=== PATIENT | female | born 1960 | race Caucasian/White ===

== ENCOUNTER 2019-09-14 16:02 | Inpatient (IN) | payer BC ==
[~2019-09-14] VITALS: Ht 160 cm; Wt 56.8 kg
[~2019-09-14 16:02] MED LIST: AMITRIPTYLINE H10 M1 PO; CIPRO 500MG TA500 MG PO; [UNRECOGNIZED DRUG - REMARK]
[2019-09-14 17:11] LABS: ARTERIAL BLD GAS O2 SATURATION 86.8 % (92-100); ARTERIAL BLD GAS TCO2 CT 23.9; ARTERIAL BLOOD GAS BASE EXCESS -0.7 (-2-2); ARTERIAL BLOOD GAS HCO3 22.9 meq/L (22-26); ARTERIAL BLOOD GAS PCO2 34.9 mmHg (35-45); ARTERIAL BLOOD GAS pH 7.43 (7.35-7.45)
[2019-09-14 17:18] LABS: BASO # 0.2 (0.0-0.2); EOS # 5.3 (0.0-0.7); EOS % 30.5 % (0-4.0); GRAN # 9.3 (1.4-6.5); GRAN % 53.8 % (42.2-75.2); HEMATOCRIT 42.4 % (37.0-47.0); HEMOGLOBIN 14.9 g/dl (12.5-16.0); LYMPH # 1.7 (1.2-3.4); LYMPH % 9.6 % (20.0-51.0); MEAN CELL VOLUME 89 fl (80.0-100.0); MEAN CORPUSCULAR HEMOGLOBIN 31 pg (27.0-31.0); MEAN CORPUSCULAR HGB CONC 35 g/dl (33.0-37.0); MEAN PLATELET VOLUME 8.5 fl (7.4-10.4); MONO # 0.8 (0.1-0.6); MONO % 4.6 % (1.7-9.3); PLATELET COUNT 205 K/mm3 (130-400); RED BLOOD COUNT 4.75 M/mm3 (4.10-5.30); REDCELL DISTRIBUTION WIDTH-CV 12.3 % (11.5-14.5)
[2019-09-14 17:29] LABS: ALANINE AMINOTRANSFERASE 13 U/L (4-34); ALBUMIN 4.1 gm/dL (3.5-5.0); ALKALINE PHOSPHATASE 165 U/L (50-136); ANION GAP 7 mmol/L (7-16); AST,SGOT 22 U/L (15-37); BLOOD UREA NITROGEN 7 mg/dL (7-17); CALCIUM 9.9 mg/dL (8.4-10.2); CARBON DIOXIDE 26 mmol/L (22-30); CHLORIDE 107 mmol/L (98-107); CREATININE, serum 0.71 (0.52-1.25); GLUCOSE 103 mg/dL (74-106); POTASSIUM 3.9 mmol/L (3.4-5.0); SODIUM 139 mmol/L (137-145)
[2019-09-14 17:44] LABS: TROPONIN-I < 0.012 ng/mL (0.000-0.035)
[2019-09-14 20:01] VITALS: BP 148/79; PULSE 89; TEMP 97.8
--- NOTE | 2019-09-14 20:30 | NUR ---
Received patient via wheelchair from ER. Patient is alert and oriented. She has O2 at 2lpm via NC. With INT on left hand. Assesment done. No shortness of breath noted. She just complains of headache, 4/10. She is independent. Call light within reach.
[2019-09-14 22:21] LABS: PH 6 (5-8); SQUAMOUS EPITHELIAL 0-2 /hpf; URINE APPEARANCE Clear; URINE BACTERIA Rare /hpf; URINE BILIRUBIN Negative (NEGATIVE); URINE BLOOD Negative (NEGATIVE); URINE COLOR Straw; URINE GLUCOSE 1+ (NEGATIVE); URINE KETONE Negative (NEGATIVE); URINE LEUKOCYTE ESTERASE Negative (NEGATIVE); URINE NITRATE Negative (NEGATIVE); URINE PROTEIN(semi-quant) Negative (NEGATIVE); URINE RBC 0-2 /hpf; URINE UROBILINOGEN Negative (NEGATIVE)
[2019-09-14 22:26] LABS: COLLECTION METHOD CLEAN CATCH
[2019-09-14 23:17] VITALS: BP 155/76; PULSE 71; TEMP 97.7
[2019-09-15 04:33] VITALS: BP 148/65; PULSE 73; TEMP 97.6
--- NOTE | 2019-09-15 06:41 | NUR ---
Patient had an uneventful night. States her shortness of breath is much better already. She has been walking to the bathroom to urinate with one assist. Denies any pain. Will endorse to day shift nurse.
[2019-09-15 07:11] LABS: HEMATOCRIT 37.3 % (37.0-47.0); MEAN CELL VOLUME 90 fl (80.0-100.0); MEAN CORPUSCULAR HEMOGLOBIN 32 pg (27.0-31.0); MEAN CORPUSCULAR HGB CONC 35 g/dl (33.0-37.0); MEAN PLATELET VOLUME 8.8 fl (7.4-10.4); PLATELET COUNT 193 K/mm3 (130-400); RED BLOOD COUNT 4.13 M/mm3 (4.10-5.30); REDCELL DISTRIBUTION WIDTH-CV 12.4 % (11.5-14.5)
[2019-09-15 07:14] LABS: CALCIUM 9.5 mg/dL (8.4-10.2); CREATININE, serum 0.55 (0.52-1.25); POTASSIUM 3.7 mmol/L (3.4-5.0)
[2019-09-15 07:39] VITALS: BP 154/66; PULSE 74; TEMP 97.8
[2019-09-15 08:13] LABS: BAND 13 % (0-10); LYMPHOCYTE 12 % (20.0-51.0); NEUTROPHILS 72 % (42.0-75.2); PLATELET ESTIMATE NORMAL (NORMAL)
--- NOTE | 2019-09-15 08:51 | NUR ---
Pt assessment complete. Pt sitting up in bed upon entry, she is A/O. Pt recieving a breathing treatment at this time. She reports a HUFF this AM, PRN medication administered. Pt denies any N/V. SOB still on exertion but believes it has improved. Currently on 2L O2 via NC. No needs at this time. Call light within reach.
--- NOTE | 2019-09-15 11:31 | NUR ---
First visit from the senior analyst programmer. No needs right now.
--- NOTE | 2019-09-15 11:32 | NUR ---
DENI met with the patient to complete initial intake. The patient lives alone in [place]. The patient denies DME use, does not use oxygen at home and is independent with ADLs. The patient is on oxygen this day. The patient's PCP is Dr. Potts and patient receives medication from [facility]. The patient does not have advanced directives in the EMR but was interested in DPOA-HC form. Form provided. The patient plans to return home at discharge with her daughter Anna Marie providing transportation. DENI will follow along to ensure the patient will not need oxygen at discharge.
[2019-09-15 12:24] VITALS: BP 172/67; PULSE 88; TEMP 97.7
[2019-09-15 16:54] VITALS: BP 152/68; PULSE 102; TEMP 97.9
--- NOTE | 2019-09-15 20:30 | NUR ---
Initial shift assessment done- states has just a slight headache but is better, VSS, o2 at 1.5L/nc 96% denies .SOB at this time. Tele on, No requests.
[2019-09-15 20:49] VITALS: BP 156/57; PULSE 101; TEMP 98.1
[2019-09-15 23:21] VITALS: BP 135/61; PULSE 97; TEMP 98
--- NOTE | 2019-09-15 23:30 | NUR ---
Report given to Regla DIXON-
--- NOTE | 2019-09-16 02:48 | NUR ---
TREATMENT NOT GIVEN-PATIENT SLEEPING
--- NOTE | 2019-09-16 03:43 | NUR ---
PT RESTING/SLEEPING IN BED WELL, WITH NO C/O OR S/S OF PAIN OR DISCOMFORT NOTED. CALL LIGHT WITHIN REACH.
[2019-09-16 04:17] VITALS: BP 153/65; PULSE 83; TEMP 97.3
[2019-09-16 07:39] LABS: HEMATOCRIT 40.5 % (37.0-47.0); HEMOGLOBIN 14.2 g/dl (12.5-16.0); MEAN CELL VOLUME 90 fl (80.0-100.0); MEAN CORPUSCULAR HEMOGLOBIN 32 pg (27.0-31.0); MEAN CORPUSCULAR HGB CONC 35 g/dl (33.0-37.0); MEAN PLATELET VOLUME 8.7 fl (7.4-10.4); PLATELET COUNT 240 K/mm3 (130-400); RED BLOOD COUNT 4.49 M/mm3 (4.10-5.30); REDCELL DISTRIBUTION WIDTH-CV 12.8 % (11.5-14.5)
[2019-09-16 07:44] LABS: CALCIUM 10.6 mg/dL (8.4-10.2); CREATININE, serum 0.62 (0.52-1.25)
[2019-09-16 07:52] VITALS: BP 150/78; PULSE 82; TEMP 97.6
--- NOTE | 2019-09-16 08:23 | NUR ---
PAIENT DOES NOT REQUIRE OXYGEN DURING AMBULATION OR AT REST.
[2019-09-16 08:34] LABS: BAND 3 % (0-10); EOSINOPHIL 1 % (0-4); LYMPHOCYTE 10 % (20.0-51.0); METAMYELOCYTE 1 % (0-0); NEUTROPHILS 81 % (42.0-75.2); PLATELET ESTIMATE NORMAL (NORMAL)
[2019-09-16] MEDS ORDERED: PROAIR HFA0.09 MG/AC IH (11:09)
[2019-09-16] MEDS ORDERED: MONODOX100 PO (11:09)
[2019-09-16] MEDS ORDERED: PREDNISONE20 MG PO (11:18)
[2019-09-16] MEDS ORDERED: NICODERM C21 MG/PATC TD (11:18)
--- NOTE | 2019-09-16 11:34 | NUR ---
Pt assessment completed and charted. Medications administered per JUN. Pt finished up exercise ox with RT. Pt on room air, satting well. Pt denies any SOB or dizziness at this time. Pt states she "feels better than yesterday". Pt has LH INT IV that flushes w/o complications. Pt denies any pain, chest pain, N/V/D, abdominal pain. No other concerns expressed at this time. Call light within reach.
--- NOTE | 2019-09-16 11:41 | NUR ---
The patient's PA notified DENI that the patient is wanting to see Dr. Diaz for primary care and that she is unsure if she is still established there or not. DENI contacted [employer] at the [facility]. [employer] reports that the patient had switched to Dr. Davis in the past, but then comes back to Dr. Diaz. [employer] states that they would still see the patient. [employer] requested the patient's records from her hospital stay. DENI faxed the records to [employer]. [employer] reports that they will contact the patient to set up a follow up appointment. DENI notified the patient, her PA, and the doc of this. Th patient verbalized understanding. The patient is to discharge back home today, 09/15. No additional needs at this time.
[2019-09-16 11:42] VITALS: BP 158/66; PULSE 91; TEMP 97.5
--- NOTE | 2019-09-16 14:24 | NUR ---
Pt discharge instructions discussed and reviewed with patient who verbalized understanding. LH INT IV dc'd w/ catheter tip intact and no complications. All questions answered. Pt escorted out via WC by SANJUANA Burch. No further needs.
== END 2019-09-16 14:00 | disposition home or self-care (01) | DRG 189 ==
LOC: COL.ER 16:02 → MEDICAL 17:56
PROVIDERS: Emergency Medicine; Physician Assistant
DX: J96.01 Acute respiratory failure with hypoxia (principal); G43.909 Migraine, unspecified, not intractable, without status migrainosus; F17.210 Nicotine dependence, cigarettes, uncomplicated; I10 Essential (primary) hypertension; J44.9 Chronic obstructive pulmonary disease, unspecified; Z90.49 Acquired absence of other specified parts of digestive tract; Z98.51 Tubal ligation status
CPT/HCPCS: 99223-AI; 99232-AI; 99239; J0696; J1644; J2920; J2930; J7030; J7512

== ENCOUNTER 2019-09-22 15:16 | Emergency (ER) | payer BC ==
[~2019-09-22] VITALS: Ht 160 cm; Wt 54.5 kg
[~2019-09-22 15:16] MED LIST changes: +MONODOX100 PO; +NICODERM C21 MG/PATC TD; +PREDNISONE20 MG PO; +PROAIR HFA0.09 MG/AC IH
[2019-09-22 15:26] VITALS: TEMP 97.8
[2019-09-22] MEDS ORDERED: PRIL40 PO (15:57)
[2019-09-22 16:13] LABS: BASO % 0.3 % (0.0-2.0); EOS # 2.9 (0.0-0.7); EOS % 19.3 % (0-4.0); GRAN # 6.9 (1.4-6.5); GRAN % 46.5 % (42.2-75.2); HEMATOCRIT 37.8 % (37.0-47.0); HEMOGLOBIN 13.3 g/dl (12.5-16.0); LYMPH # 3.6 (1.2-3.4); LYMPH % 24.4 % (20.0-51.0); MEAN CELL VOLUME 89 fl (80.0-100.0); MEAN CORPUSCULAR HEMOGLOBIN 31 pg (27.0-31.0); MEAN CORPUSCULAR HGB CONC 35 g/dl (33.0-37.0); MEAN PLATELET VOLUME 8.8 fl (7.4-10.4); MONO # 1.3 (0.1-0.6); MONO % 8.6 % (1.7-9.3); PLATELET COUNT 254 K/mm3 (130-400); RED BLOOD COUNT 4.24 M/mm3 (4.10-5.30); REDCELL DISTRIBUTION WIDTH-CV 12.4 % (11.5-14.5)
[2019-09-22 16:22] LABS: ALANINE AMINOTRANSFERASE 23 U/L (4-34); ALBUMIN 3.6 gm/dL (3.5-5.0); ALKALINE PHOSPHATASE 105 U/L (50-136); ANION GAP 8 mmol/L (7-16); AST,SGOT 46 U/L (15-37); BILIRUBIN,TOTAL 0.7 mg/dL (0.0-1.0); BLOOD UREA NITROGEN 17 mg/dL (7-17); CALCIUM 10.7 mg/dL (8.4-10.2); CARBON DIOXIDE 28 mmol/L (22-30); CHLORIDE 99 mmol/L (98-107); CREATININE, serum 0.82 (0.52-1.25); GLUCOSE 90 mg/dL (74-106); LIPASE 184 U/L (23-300); POTASSIUM 3.4 mmol/L (3.4-5.0); SODIUM 134 mmol/L (137-145); TOTAL PROTEIN 6.8 gm/dL (6.4-8.2)
[2019-09-22 16:27] LABS: C-REACTIVE PROTEIN < 0.5 mg/dL (0.0-0.9)
[2019-09-22 16:36] LABS: TROPONIN-I < 0.012 ng/mL (0.000-0.035)
[2019-09-22 16:55] LABS: COLLECTION METHOD CLEAN CATCH
[2019-09-22 17:05] LABS: MUCOUS Present /lpf; PH 5 (5-8); URINE APPEARANCE Hazy; URINE BACTERIA Rare /hpf; URINE BILIRUBIN Negative (NEGATIVE); URINE BLOOD 1+ (NEGATIVE); URINE COLOR Yellow; URINE GLUCOSE Negative (NEGATIVE); URINE KETONE Negative (NEGATIVE); URINE LEUKOCYTE ESTERASE Negative (NEGATIVE); URINE NITRATE Negative (NEGATIVE); URINE PROTEIN(semi-quant) Negative (NEGATIVE); URINE RBC 0-2 /hpf; URINE UROBILINOGEN Negative (NEGATIVE)
[2019-09-22 18:30] VITALS: BP 138/62; PULSE 89
== END 2019-09-22 18:45 | disposition home or self-care (01) ==
LOC: COL.ER 15:16
PROVIDERS: Emergency Medicine
DX: R07.89 Other chest pain (principal); J44.9 Chronic obstructive pulmonary disease, unspecified; F17.210 Nicotine dependence, cigarettes, uncomplicated; Z87.01 Personal history of pneumonia (recurrent)

== ENCOUNTER 2019-12-29 15:00 | Emergency (ER) | payer BC ==
[~2019-12-29] VITALS: Ht 160 cm; Wt 60.5 kg
[~2019-12-29 15:00] MED LIST changes: +PRIL40 PO
[2019-12-29 15:09] VITALS: BP 146/83; TEMP 97.4
[2019-12-29] MEDS ORDERED: PREDNISONE20 MG PO (15:58)
[2019-12-29 16:02] LABS: STREP SCREEN NEGATIVE
[2019-12-29 16:45] VITALS: PULSE 94
== END 2019-12-29 16:42 | disposition home or self-care (01) ==
LOC: COL.ER 15:00
PROVIDERS: Emergency Medicine
DX: J20.9 Acute bronchitis, unspecified (principal); J44.9 Chronic obstructive pulmonary disease, unspecified; Z20.828 Contact with and (suspected) exposure to other viral communicable diseases
CPT/HCPCS: J7512

== ENCOUNTER 2020-06-30 15:53 | Inpatient (IN) | payer BC ==
[~2020-06-30] VITALS: Ht 160 cm; Wt 63.2 kg
[2020-06-30 17:18] LABS: COLLECTION METHOD CLEAN CATCH
[2020-06-30 17:24] LABS: BASO # 0.1 (0.0-0.2); BASO % 0.2 % (0.0-2.0); EOS % 0.2 % (0-4.0); GRAN # 18.3 (1.4-6.5); GRAN % 84.9 % (42.2-75.2); HEMOGLOBIN 11.9 g/dl (12.5-16.0); LYMPH % 9.2 % (20.0-51.0); MEAN CELL VOLUME 91 fl (80.0-100.0); MEAN CORPUSCULAR HEMOGLOBIN 32 pg (27.0-31.0); MEAN CORPUSCULAR HGB CONC 35 g/dl (33.0-37.0); MEAN PLATELET VOLUME 8.5 fl (7.4-10.4); MONO % 4.8 % (1.7-9.3); PLATELET COUNT 279 K/mm3 (130-400); RED BLOOD COUNT 3.72 M/mm3 (4.10-5.30); REDCELL DISTRIBUTION WIDTH-CV 12.6 % (11.5-14.5)
[2020-06-30 17:25] LABS: PH 6 (5-8); SQUAMOUS EPITHELIAL None Seen /hpf; URINE APPEARANCE Clear; URINE BACTERIA None Seen /hpf; URINE BILIRUBIN Negative (NEGATIVE); URINE BLOOD 1+ (NEGATIVE); URINE COLOR Colorless; URINE GLUCOSE Negative (NEGATIVE); URINE KETONE Negative (NEGATIVE); URINE LEUKOCYTE ESTERASE Negative (NEGATIVE); URINE NITRATE Negative (NEGATIVE); URINE PROTEIN(semi-quant) Negative (NEGATIVE); URINE RBC None Seen /hpf; URINE UROBILINOGEN Negative (NEGATIVE)
[2020-06-30 17:35] LABS: ALANINE AMINOTRANSFERASE 31 U/L (4-34); ALBUMIN 4.3 gm/dL (3.5-5.0); ALKALINE PHOSPHATASE 93 U/L (50-136); ANION GAP 13 mmol/L (7-16); AST,SGOT 35 U/L (15-37); BILIRUBIN,TOTAL 0.9 mg/dL (0.0-1.0); BLOOD UREA NITROGEN 7 mg/dL (7-17); C-REACTIVE PROTEIN 5.4 mg/dL (0.0-0.9); CALCIUM 9.9 mg/dL (8.4-10.2); CARBON DIOXIDE 24 mmol/L (22-30); CHLORIDE 100 mmol/L (98-107); CREATININE, serum 0.73 (0.52-1.25); GLUCOSE 100 mg/dL (74-106); SODIUM 136 mmol/L (137-145); TOTAL PROTEIN 7.1 gm/dL (6.4-8.2)
[2020-06-30 17:58] LABS: TROPONIN-I < 0.012 ng/mL (0.000-0.035)
[2020-06-30] MEDS ORDERED: ELAVIL100 MG PO (18:55)
[2020-06-30] MEDS ORDERED: TRELEGY ELLIPT1 EACH IH (19:20)
[2020-06-30] MEDS ORDERED: B-121000 MCG PO (19:22)
[2020-06-30] MEDS ORDERED: TYLENOL 8 HR PO (19:22)
[2020-06-30 21:17] LABS: ARTERIAL BLD GAS O2 SATURATION 93.5 % (92-100); ARTERIAL BLD GAS TCO2 CT 21.7; ARTERIAL BLOOD GAS BASE EXCESS -3.3 (-2-2); ARTERIAL BLOOD GAS HCO3 20.7 meq/L (22-26); ARTERIAL BLOOD GAS PCO2 33.8 mmHg (35-45); ARTERIAL BLOOD GAS PO2 65.5 mmHg (80-100)
--- NOTE | 2020-06-30 21:46 | NUR ---
Vancomycin Initial Dosing Pharmacy Note Ordering provider: Jake Hernandez MD 59 yo F Indication: PNA Goal: 15-20 Hx: None identified BMI: 23.1 Wt: 59.1 kg SCR: 0.73 estCrCl ~ 75 ml/min t 1/2 ~ 10h Tmax: 100.1 WBC: 21.5 LA: 3.8 CRP: 5.4 Micro ordered (No MRSA nasal swab ordered) Chest CT reporting multifocal PNA Pt loaded with 1250mg x1 (~21 mg/kg). Will start a maintenance regimen of 1gm q12h. Would recommend obtaining a MRSA nasal screen to determine ability to de-escalate therapy. Will follow renal function, micro, and plan for need to adjust therapy. Thank you for this dosing consult!
[2020-06-30 23:19] VITALS: BP 159/62; PULSE 103; TEMP 97.8
--- NOTE | 2020-06-30 23:30 | NUR ---
Patient arrived to medical floor from ER at approximately 2230. Alert and oriented x 4, and able to make needs known. Denies having pain and discomfort at this time. Peripheral IV to left forearm, with NS running per orders. Given IV ABXs per orders. Site without redness, warmth, swelling, and pain. Denies having SOB and dyspnea. LS diminished. On oxygen at 2 L/min via NC. Reports occasional cough with some sputum production. Educated that sputum sample was needed, and voiced understanding. HRR. Telemetry in place. Capillary refill less than 3 seconds. Non-tenting skin turgor. BSAx4. Abdomen soft and non-tender. No edema. Voices no questions, needs, or concerns at this time. Resting in bed with call light within reach.
[2020-06-30 23:51] VITALS: BP 159/62; PULSE 103; TEMP 97.8
[2020-07-01 02:01] LABS: INR 1.3 (0.8-3.0); PROTHROMBIN TIME 14.2 SECONDS (9.7-12.8)
[2020-07-01 02:45] LABS: ACETAMINOPHEN < 10 ug/mL (10-30); ALCOHOL(ethanol),MEDICAL < 10 mg/dL; SALICYLATE < 1.0 mg/dL
[2020-07-01 03:45] VITALS: BP 116/49; PULSE 101; TEMP 98.7
--- NOTE | 2020-07-01 05:47 | NUR ---
Patient has been resting in bed with call light within reach. Has denied having pain and discomfort this shift. Continues on oxygen at 2 L/min via NC. Denies having SOB and dsypnea. IV fluids continue per orders. MD aware of Lactic elevating. Voices no questions, needs, or concerns at this time.
--- NOTE | 2020-07-01 06:04 | NUR ---
Most recenet Lactic 4.3, which is down from 6.5. Called and updated DREW Maloney that it started to trend down.
[2020-07-01 07:09] LABS: HEMOGLOBIN 11.5 g/dl (12.5-16.0); MEAN CELL VOLUME 94 fl (80.0-100.0); MEAN CORPUSCULAR HEMOGLOBIN 32 pg (27.0-31.0); MEAN CORPUSCULAR HGB CONC 34 g/dl (33.0-37.0); MEAN PLATELET VOLUME 8.6 fl (7.4-10.4); PLATELET COUNT 270 K/mm3 (130-400); RED BLOOD COUNT 3.61 M/mm3 (4.10-5.30)
[2020-07-01 07:18] LABS: HEMATOCRIT 33.8 % (37.0-47.0)
[2020-07-01 07:24] LABS: CALCIUM 8.5 mg/dL (8.4-10.2); CREATININE, serum 0.66 (0.52-1.25); POTASSIUM 3.2 mmol/L (3.4-5.0)
[2020-07-01 07:45] LABS: BAND 7 % (0-10); NEUTROPHILS 92 % (42.0-75.2); PLATELET ESTIMATE NORMAL (NORMAL)
[2020-07-01 08:29] VITALS: BP 158/73; PULSE 104; TEMP 97.9
--- NOTE | 2020-07-01 11:31 | NUR ---
DENI met with the patient to discuss discharge plan. The patient lives alone in [place]. She states that her son, Rock, sometimes stays with her. 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 She reports independence with ADLs and does not have any DME. The patient's PCP is Dr. Cisco Diaz and [facility] She reports no difficulties obtaining his meds. The patient does not have a DPOA-HC and she was not interested in completing one at this time. The patient is not and she has three children: Rock, Molina, and Anna Marie (ph#[phone]). Anna Marie lives in [place]. The patient plans to return home upon discharge. The patient was interested in a financial assistance application through the hospital for herself and her son. DENI provided the forms. The patient is currently on 2 liters of oxygen. SW to continue to follow.
[2020-07-01 12:55] VITALS: BP 133/49; PULSE 99; TEMP 98.1
--- NOTE | 2020-07-01 13:45 | NUR ---
Primary nurse was assisted with [id number] patient care by [employer] [employer] [facility] Rika Bowen and [employer] instructor Marie Mclaughlin MSN, RN.
[2020-07-01 15:56] VITALS: BP 132/58; PULSE 120; TEMP 98
--- NOTE | 2020-07-01 19:30 | NUR ---
Patient alert and oriented x 4, and able to make needs known. Denies having pain and discomfort at this time. Peripheral IVs to left forearm x 2. Both sites are without redness, warmth, swelling, and pain. Denies having SOB and dyspnea. On room air. LS diminished throughout. Denies cough at this time. Respirations even and unlabored. HRR. Telemetry in place. Capillary refill less than 3 seconds. Non-tenting skin turgor. BSAx4. Abdomen soft and non-tender. No edema. Voices no questions, needs, or concerns at this time. Resting in bed with call light within reach.
[2020-07-01 22:02] VITALS: BP 129/60; PULSE 114; TEMP 98.2
[2020-07-02] VITALS (7 sets, daily range): BP systolic 126–182; BP diastolic 55–76; PULSE 98–116; TEMP 97.4–97.9
--- NOTE | 2020-07-02 05:49 | NUR ---
Patient has been resting in bed with call light within reach. Has denied having pain and discomfort this shift. Continues on IV antibiotics per orders. Voices no questions, needs, or concerns at this time.
--- NOTE | 2020-07-02 07:05 | NUR ---
Report with ZACK Corrales. Pt receiving breathing treatment at this time. Call light in reach.
[2020-07-02 07:36] LABS: BASO % 0.2 % (0.0-2.0); EOS % 0.1 % (0-4.0); GRAN # 16.7 (1.4-6.5); GRAN % 87.4 % (42.2-75.2); HEMOGLOBIN 10.5 g/dl (12.5-16.0); LYMPH # 1.5 (1.2-3.4); LYMPH % 7.9 % (20.0-51.0); MEAN CELL VOLUME 95 fl (80.0-100.0); MEAN CORPUSCULAR HEMOGLOBIN 32 pg (27.0-31.0); MEAN CORPUSCULAR HGB CONC 33 g/dl (33.0-37.0); MEAN PLATELET VOLUME 8.7 fl (7.4-10.4); MONO # 0.7 (0.1-0.6); MONO % 3.7 % (1.7-9.3); PLATELET COUNT 286 K/mm3 (130-400); RED BLOOD COUNT 3.29 M/mm3 (4.10-5.30); REDCELL DISTRIBUTION WIDTH-CV 13.6 % (11.5-14.5)
[2020-07-02 07:38] LABS: HEMATOCRIT 31.4 % (37.0-47.0)
--- NOTE | 2020-07-02 07:50 | NUR ---
Assessment complete. Pt sitting up by window, reports feeling slightly short of breath d/t sore throat and ache in her lower chest from coughing, requesting increased air in room. Thermostat turned down for lower temp and PA notified of high BP, request for lozenges. O2 sats 94% on room air. IVF's infusing per orders through left forearm site without s/s of complications. Second IV to left forearm with abx infusing, no s/s of infiltration or phlebitis. No further needs reported. Call light in reach.
[2020-07-02 07:56] LABS: CALCIUM 8.3 mg/dL (8.4-10.2); CREATININE, serum 0.67 (0.52-1.25); MAGNESIUM 1.7 mg/dL (1.6-2.3)
[2020-07-02 07:57] LABS: POTASSIUM 3.3 mmol/L (3.4-5.0)
--- NOTE | 2020-07-02 10:51 | NUR ---
First visit from the bark spudder. No needs right now.
--- NOTE | 2020-07-02 17:00 | NUR ---
Abx infusion complete and IV flushed. IVF's continue. Pt reports just being up to bathroom and back to bed, feeling a little winded, requests to wait until bedtime for shower. No further needs reported. Call light in reach.
--- NOTE | 2020-07-02 18:45 | NUR ---
Report with ZACK Corrales.
--- NOTE | 2020-07-02 19:15 | NUR ---
Patient assessed at this time. Alert and oriented x 4, and able to make needs known. Denies having pain and discomfort at this time. Peripheral INT to left forearm x 2. Reports SOB with exertion. Respirations even and unlabored at rest. LS CTA in upper lobes, diminished in lower. Respirations even and unlabored. HRR. Capillary refill less than 3 seconds. Non-tenting skin turgor. BSAx4. Abdomen soft and non-tender. No edema. Voices no questions, needs, or concerns at this time. Resting in bed with call light within reach.
[2020-07-03 04:39] VITALS: BP 159/82; PULSE 95; TEMP 97.8
--- NOTE | 2020-07-03 05:56 | NUR ---
Patient has denied having pain and discomfort this shift. Voices no questions, needs, or concerns at this time. Continues on IV antibiotics per orders. Resting in bed with call light within reach.
[2020-07-03 06:37] LABS: BASO % 0.2 % (0.0-2.0); EOS % 0.3 % (0-4.0); GRAN # 10.8 (1.4-6.5); GRAN % 78.2 % (42.2-75.2); LYMPH # 2.2 (1.2-3.4); LYMPH % 15.7 % (20.0-51.0); MEAN CELL VOLUME 96 fl (80.0-100.0); MEAN CORPUSCULAR HEMOGLOBIN 32 pg (27.0-31.0); MEAN CORPUSCULAR HGB CONC 33 g/dl (33.0-37.0); MEAN PLATELET VOLUME 8.1 fl (7.4-10.4); MONO # 0.7 (0.1-0.6); MONO % 4.9 % (1.7-9.3); PLATELET COUNT 294 K/mm3 (130-400); RED BLOOD COUNT 3.45 M/mm3 (4.10-5.30); REDCELL DISTRIBUTION WIDTH-CV 13.6 % (11.5-14.5)
[2020-07-03 06:46] LABS: HEMATOCRIT 33.1 % (37.0-47.0)
[2020-07-03 06:48] LABS: CALCIUM 8.5 mg/dL (8.4-10.2); CREATININE, serum 0.66 (0.52-1.25); MAGNESIUM 2.5 mg/dL (1.6-2.3); POTASSIUM 3.5 mmol/L (3.4-5.0)
--- NOTE | 2020-07-03 07:00 | NUR ---
Report with ZACK Corrales. Pt resting in bed, waking as we enter the room. RT at bedside for treatment as well. Pt denies needs. Call light in reach.
[2020-07-03 08:27] VITALS: BP 153/71; PULSE 98; TEMP 97.6
--- NOTE | 2020-07-03 08:30 | NUR ---
Assessment complete. Pt resting in bed, A&O x 4, denies pain or needs at this time. Pt reports feeling better today. IVF's infusing per orders through left forearm site without s/s of complications. Second IV discontinued from left forearm d/t not needed and slight redness in area. POC reviewed with pt. Call light in reach.
[2020-07-03] MEDS ORDERED: COZAAR 25MG25 MG/TAB PO (09:16)
[2020-07-03] MEDS ORDERED: OMNICEF 300MG300 MG PO (09:18)
[2020-07-03] MEDS ORDERED: MEDROL 4MG DOSPA4 MG PO (09:18)
[2020-07-03] MEDS ORDERED: PROAIR HFA0.09 MG/AC IH (09:19)
[2020-07-03] MEDS ORDERED: TRELEGY ELLIPT1 EACH IH (09:19)
--- NOTE | 2020-07-03 12:50 | NUR ---
Discharge instructions reviewed with pt regarding new medications and follow-up appointment. Pt verbalizes understanding, discharged home, escorted out of facility via WC accompanied by this nurse.
[2021-01-28] MEDS ORDERED: FLEXERIL5 MG PO (18:33)
[2021-01-28] MEDS ORDERED: PREDNISONE20 MG PO (18:33)
[2021-01-28] MEDS ORDERED: MOBIC 7.5MG7.5 MG PO (18:34)
[2021-01-28] MEDS ORDERED: OMNICEF 300MG300 MG PO (18:34)
[2021-01-28] MEDS ORDERED: REGLAN 5MG T5 MG/TAB PO (18:35)
[2021-01-28] MEDS ORDERED: COZAAR 50MG50 MG/TAB PO (20:21)
[2021-01-28] MEDS ORDERED: ELAVIL100 MG PO (20:23)
[2021-01-28] MEDS ORDERED: PRIL40 PO (20:24)
== END 2020-07-03 13:03 | disposition home or self-care (01) | DRG 871 ==
LOC: COL.ER 15:53 → MEDICAL 20:10
PROVIDERS: Family Medicine; Nurse Practitioner Family; Physician Assistant; ADMIT Internal Medicine
DX: A41.9 Sepsis, unspecified organism (principal); J18.9 Pneumonia, unspecified organism; J44.0 Chronic obstructive pulmonary disease with (acute) lower respiratory infection; R65.20 Severe sepsis without septic shock; Z20.822 Contact with and (suspected) exposure to COVID-19; D64.9 Anemia, unspecified; G43.909 Migraine, unspecified, not intractable, without status migrainosus; I10 Essential (primary) hypertension; E87.6 Hypokalemia; G40.909 Epilepsy, unspecified, not intractable, without status epilepticus; Z90.49 Acquired absence of other specified parts of digestive tract; Z98.51 Tubal ligation status; Z87.891 Personal history of nicotine dependence
CPT/HCPCS: 99223-AI; 99232-AI; 99233-AI; 99239; J0360; J0456; J1650; J2543; J2930; J3370; J3475; J7030; J7050; J7512; Q9967

== ENCOUNTER → 2021-01-25 | Outpatient (CLI) | payer OTHER ==
[~2021-01-25] MED LIST changes: +B-121000 MCG PO; +COZAAR 25MG25 MG/TAB PO; +COZAAR 50MG50 MG/TAB PO; +ELAVIL100 MG PO; +FLEXERIL5 MG PO; +MEDROL 4MG DOSPA4 MG PO; +MOBIC 7.5MG7.5 MG PO; +OMNICEF 300MG300 MG PO; +REGLAN 5MG T5 MG/TAB PO; +TRELEGY ELLIPT1 EACH IH; +TYLENOL 8 HR PO
[2021-01-25 15:11] LABS: HEMATOCRIT 37.1 % (37.0-47.0); HEMOGLOBIN 13.1 g/dl (12.5-16.0); MEAN CELL VOLUME 94 fl (80.0-100.0); MEAN CORPUSCULAR HEMOGLOBIN 33 pg (27.0-31.0); MEAN CORPUSCULAR HGB CONC 35 g/dl (33.0-37.0); MEAN PLATELET VOLUME 9.2 fl (7.4-10.4); PLATELET COUNT 213 K/mm3 (130-400); RED BLOOD COUNT 3.96 M/mm3 (4.10-5.30); REDCELL DISTRIBUTION WIDTH-CV 13.7 % (11.5-14.5)
[2021-01-25 15:29] LABS: BAND 2 % (0-10); EOSINOPHIL 41 % (0-4); LYMPHOCYTE 17 % (20.0-51.0); NEUTROPHILS 36 % (42.0-75.2); PLATELET ESTIMATE NORMAL (NORMAL)
[2021-01-25 15:33] LABS: ALBUMIN 4.1 gm/dL (3.4-4.8); BILIRUBIN,TOTAL 0.7 mg/dL (0.2-1.2); CALCIUM 9.8 mg/dL (8.4-10.2); CREATININE, serum 0.8 mg/dL (0.57-1.11); POTASSIUM 3.4 mmol/L (3.5-4.5); TOTAL PROTEIN 7.4 gm/dL (6.2-8.1)
== END ==
LOC: ZCOL.LAB 14:44
PROVIDERS: Nurse Practitioner Family
DX: R10.11 Right upper quadrant pain (principal)

== ENCOUNTER → 2021-05-10 | Outpatient (CLI) | payer OTHER | LOC: ZCOL.LAB 15:42 | DX: S91.201A Unspecified open wound of right great toe with damage to nail, initial encounter (principal) ==

== ENCOUNTER → 2021-05-23 | Outpatient (CLI) | payer OTHER | LOC: COL.RAD 10:02 | DX: J43.9 Emphysema, unspecified (principal); R91.1 Solitary pulmonary nodule | CPT/HCPCS: Q9967 ==

== ENCOUNTER → 2021-07-25 | Outpatient (CLI) | payer OTHER, MEDICAID | LOC: MC.RAD 15:27 | DX: Z12.31 Encounter for screening mammogram for malignant neoplasm of breast (principal) ==

== ENCOUNTER → 2021-11-10 | Outpatient (CLI) | payer MEDICAID ==
[~2021-11-10] MED LIST changes: +ELIQUIS 5MG PO
== END ==
LOC: COL.VAS 14:11
DX: I36.1 Nonrheumatic tricuspid (valve) insufficiency (principal); I31.3 Pericardial effusion (noninflammatory); I46.9 Cardiac arrest, cause unspecified

== ENCOUNTER 2021-11-23 00:37 | Emergency (ER) | payer MEDICAID ==
[~2021-11-23] VITALS: Ht 160 cm; Wt 54.1 kg
[~2021-11-23 00:37] MED LIST changes: -ELIQUIS 5MG PO
[2021-11-23 00:54] VITALS: TEMP 97.9
[2021-11-23] MEDS ORDERED: ELIQUIS 5MG PO (00:55)
[2021-11-23 02:54] VITALS: BP 169/63; PULSE 60
== END 2021-11-23 02:54 | disposition home or self-care (01) ==
LOC: COL.ER 00:37
DX: L76.22 Postprocedural hemorrhage of skin and subcutaneous tissue following other procedure (principal); F17.200 Nicotine dependence, unspecified, uncomplicated; Z86.73 Personal history of transient ischemic attack (TIA), and cerebral infarction without residual deficits; Z79.01 Long term (current) use of anticoagulants

== ENCOUNTER 2022-01-15 10:29 | Emergency (ER) | payer MEDICAID ==
[~2022-01-15] VITALS: Ht 160 cm; Wt 54.5 kg
[~2022-01-15 10:29] MED LIST changes: +ELIQUIS 5MG PO
[2022-01-15 10:39] VITALS: TEMP 97.2
[2022-01-15 12:49] LABS: BASO % 0.5 % (0.0-2.0); EOS # 0.4 K/mm3 (0.0-0.7); EOS % 6.6 % (0.0-4.0); GRAN # 3.4 K/mm3 (1.4-6.5); GRAN % 57.9 % (42.2-75.2); HEMATOCRIT 40.7 % (37.0-47.0); HEMOGLOBIN 13.6 g/dl (12.5-16.0); LYMPH # 1.6 K/mm3 (1.2-3.4); LYMPH % 27.7 % (20.0-51.0); MEAN CELL VOLUME 88 fl (80.0-100.0); MEAN CORPUSCULAR HEMOGLOBIN 29 pg (27-31); MEAN CORPUSCULAR HGB CONC 33 g/dl (33.0-37.0); MEAN PLATELET VOLUME 8.3 fl (7.4-10.4); MONO # 0.4 K/mm3 (0.1-0.6); MONO % 7.1 % (1.7-9.3); PLATELET COUNT 200 K/mm3 (130-400); RED BLOOD COUNT 4.64 M/mm3 (4.10-5.30); REDCELL DISTRIBUTION WIDTH-CV 12.5 % (11.5-14.5)
[2022-01-15 12:54] LABS: INR 2.1 (0.8-3.0)
[2022-01-15 12:56] LABS: PARTIAL THROMBOPLASTIN TIME 40.7 SECONDS (26.0-37.0)
[2022-01-15 13:05] LABS: ALBUMIN 4.4 gm/dL (3.4-4.8); BILIRUBIN,TOTAL 0.9 mg/dL (0.2-1.2); CALCIUM 10.1 mg/dL (8.4-10.2); CREATININE, serum 1.06 mg/dL (0.57-1.11); POTASSIUM 3.7 mmol/L (3.5-4.5); TOTAL PROTEIN 7.8 gm/dL (6.2-8.1)
[2022-01-15 13:11] LABS: TROPONIN-I 0.017 ng/mL (0.00-0.033)
[2022-01-15] MEDS ORDERED: PREDNISONE20 MG PO (13:42)
[2022-01-15] MEDS ORDERED: ZITHROMAX Z PA250 MG PO (13:42)
[2022-01-15 14:27] VITALS: BP 146/80; PULSE 70
== END 2022-01-15 14:27 | disposition home or self-care (01) ==
LOC: COL.ER 10:29
PROVIDERS: Physician Assistant
DX: J43.9 Emphysema, unspecified (principal); Z87.891 Personal history of nicotine dependence; Z20.822 Contact with and (suspected) exposure to COVID-19
CPT/HCPCS: J7512

== ENCOUNTER → 2022-01-16 | Outpatient (CLI) | payer MEDICAID ==
[~2022-01-16] MED LIST changes: +ZITHROMAX Z PA250 MG PO
[2022-01-16 15:41] LABS: BASO % 0.1 % (0.0-2.0); GRAN # 8.4 K/mm3 (1.4-6.5); GRAN % 85.6 % (42.2-75.2); HEMATOCRIT 37.4 % (37.0-47.0); HEMOGLOBIN 12.6 g/dl (12.5-16.0); LYMPH % 10.5 % (20.0-51.0); MEAN CELL VOLUME 88 fl (80.0-100.0); MEAN CORPUSCULAR HEMOGLOBIN 30 pg (27-31); MEAN CORPUSCULAR HGB CONC 34 g/dl (33.0-37.0); MEAN PLATELET VOLUME 8.4 fl (7.4-10.4); MONO # 0.3 K/mm3 (0.1-0.6); MONO % 3.4 % (1.7-9.3); PLATELET COUNT 246 K/mm3 (130-400); RED BLOOD COUNT 4.26 M/mm3 (4.10-5.30); REDCELL DISTRIBUTION WIDTH-CV 12.5 % (11.5-14.5)
[2022-01-16 15:56] LABS: ALBUMIN 4.3 gm/dL (3.4-4.8); BILIRUBIN,TOTAL 0.6 mg/dL (0.2-1.2); C-REACTIVE PROTEIN 0.15 mg/dL (0.00-0.50); CALCIUM 9.8 mg/dL (8.4-10.2); CREATININE, serum 0.94 mg/dL (0.57-1.11); TOTAL PROTEIN 7.6 gm/dL (6.2-8.1)
[2022-01-16 16:08] LABS: ERYTHROCYTE SEDIMENTATION RATE 8 mm/hr (0-30)
== END ==
LOC: COL.LAB 15:07
PROVIDERS: Nurse Practitioner Family
DX: D72.10 Eosinophilia, unspecified (principal)

== ENCOUNTER → 2022-05-31 | Outpatient (CLI) | payer MEDICAID ==
[2022-05-31 14:46] LABS: HEMOGLOBIN 11.3 g/dl (12.5-16.0); MEAN CELL VOLUME 88 fl (80.0-100.0); MEAN CORPUSCULAR HEMOGLOBIN 30 pg (27-31); MEAN CORPUSCULAR HGB CONC 34 g/dl (33.0-37.0); MEAN PLATELET VOLUME 8.2 fl (7.4-10.4); PLATELET COUNT 235 K/mm3 (130-400); RED BLOOD COUNT 3.81 M/mm3 (4.10-5.30); REDCELL DISTRIBUTION WIDTH-CV 13.7 % (11.5-14.5)
[2022-05-31 14:47] LABS: HEMATOCRIT 33.6 % (37.0-47.0)
[2022-05-31 15:05] LABS: C-REACTIVE PROTEIN 0.6 mg/dL (0.00-0.50); CALCIUM 9.6 mg/dL (8.4-10.2); CREATININE, serum 1.13 mg/dL (0.57-1.11); POTASSIUM 4.4 mmol/L (3.5-4.5)
[2022-05-31 15:18] LABS: BAND 6 % (0-10); EOSINOPHIL 22 % (0-4); LYMPHOCYTE 24 % (20.0-51.0); NEUTROPHILS 47 % (42.0-75.2); PLATELET ESTIMATE NORMAL (NORMAL)
[2022-05-31 15:21] LABS: ERYTHROCYTE SEDIMENTATION RATE 26 mm/hr (0-30)
== END ==
LOC: COL.LAB 14:11
PROVIDERS: Nurse Practitioner Family
DX: D72.10 Eosinophilia, unspecified (principal); J44.9 Chronic obstructive pulmonary disease, unspecified

== ENCOUNTER → 2022-06-01 | Outpatient (CLI) | payer MEDICAID | LOC: COL.LAB 13:28 | PROVIDERS: Nurse Practitioner Family | DX: D72.10 Eosinophilia, unspecified (principal) ==

== ENCOUNTER → 2022-06-06 | Outpatient (CLI) | payer MEDICAID ==
[2022-06-06 12:15] LABS: HEMOGLOBIN 11.5 g/dl (12.5-16.0); MEAN CELL VOLUME 91 fl (80.0-100.0); MEAN CORPUSCULAR HEMOGLOBIN 30 pg (27-31); MEAN CORPUSCULAR HGB CONC 33 g/dl (33.0-37.0); MEAN PLATELET VOLUME 7.9 fl (7.4-10.4); PLATELET COUNT 386 K/mm3 (130-400); REDCELL DISTRIBUTION WIDTH-CV 13.8 % (11.5-14.5)
[2022-06-06 12:32] LABS: HEMATOCRIT 34.4 % (37.0-47.0)
[2022-06-06 13:11] LABS: BAND 3 % (0-10); LYMPHOCYTE 3 % (20.0-51.0); MYELOCYTE 2 % (0-0); NEUTROPHILS 86 % (42.0-75.2)
[2022-06-06 13:12] LABS: ERYTHROCYTE SEDIMENTATION RATE 6 mm/hr (0-30); PLATELET ESTIMATE NORMAL (NORMAL)
== END ==
LOC: COL.LAB 11:25
PROVIDERS: Nurse Practitioner Family
DX: D72.10 Eosinophilia, unspecified (principal)

== ENCOUNTER 2022-07-22 00:58 | Emergency (ER) | payer MEDICAID ==
[~2022-07-22] VITALS: Ht 160 cm; Wt 54.5 kg
[2022-07-22 01:01] VITALS: TEMP 97.6
[2022-07-22 01:18] LABS: HEMATOCRIT 37.7 % (37.0-47.0); HEMOGLOBIN 12.9 g/dl (12.5-16.0); MEAN CELL VOLUME 92 fl (80.0-100.0); MEAN CORPUSCULAR HEMOGLOBIN 31 pg (27-31); MEAN CORPUSCULAR HGB CONC 34 g/dl (33.0-37.0); MEAN PLATELET VOLUME 8.2 fl (7.4-10.4); PLATELET COUNT 191 K/mm3 (130-400); RED BLOOD COUNT 4.11 M/mm3 (4.10-5.30); REDCELL DISTRIBUTION WIDTH-CV 13.3 % (11.5-14.5)
[2022-07-22 01:36] LABS: ALANINE AMINOTRANSFERASE 19 U/L (0-55); ALKALINE PHOSPHATASE 127 U/L (40-150); ANION GAP 12 mmol/L (7-16); AST,SGOT 18 U/L (5-34); BILIRUBIN,TOTAL 0.6 mg/dL (0.2-1.2); BLOOD UREA NITROGEN 10 mg/dL (10-20); CALCIUM 9.5 mg/dL (8.4-10.2); CARBON DIOXIDE 21 mmol/L (23-31); CHLORIDE 107 mmol/L (98-107); CREATININE, serum 1.17 mg/dL (0.57-1.11); GLUCOSE 107 mg/dL (70-99); POTASSIUM 4.1 mmol/L (3.5-4.5); SODIUM 140 mmol/L (136-145)
[2022-07-22 01:44] LABS: TROPONIN-I < 0.010 ng/mL (0.00-0.033)
[2022-07-22 01:45] LABS: BAND 1 % (0-10); EOSINOPHIL 37 % (0-4); LYMPHOCYTE 15 % (20.0-51.0); NEUTROPHILS 43 % (42.0-75.2); PLATELET ESTIMATE NORMAL (NORMAL)
[2022-07-22] MEDS ORDERED: AMOXICILLIN 8751 TAB PO (01:58)
[2022-07-22] MEDS ORDERED: PREDNISONE20 MG PO (01:58)
[2022-07-22] MEDS ORDERED: ZITHROMAX Z PA250 MG PO (01:58)
[2022-07-22 02:16] VITALS: BP 122/78; PULSE 62
== END 2022-07-22 02:18 | disposition home or self-care (01) ==
LOC: COL.ER 00:58
PROVIDERS: Emergency Medicine
DX: J44.1 Chronic obstructive pulmonary disease with (acute) exacerbation (principal); J18.9 Pneumonia, unspecified organism; D72.829 Elevated white blood cell count, unspecified; Z87.891 Personal history of nicotine dependence; Z20.822 Contact with and (suspected) exposure to COVID-19; Z88.1 Allergy status to other antibiotic agents
CPT/HCPCS: J2930

== ENCOUNTER → 2022-09-21 | Outpatient (CLI) | payer MEDICAID ==
[~2022-09-21] MED LIST changes: +AMOXICILLIN 8751 TAB PO
[2022-09-22 16:25] LABS: TB GOLD INTERPRETATION Negative (Negative)
== END ==
LOC: COL.LAB 11:10
PROVIDERS: Nurse Practitioner Family
DX: R04.2 Hemoptysis (principal)

== ENCOUNTER 2023-03-20 09:38 | Outpatient (RCR) | payer MEDICAID ==
[~2023-03-20] VITALS: Ht 160 cm; Wt 58.6 kg
[2023-03-20 11:00] VITALS: BP 116/67; PULSE 61; TEMP 98.5
[2023-03-20] MEDS ORDERED: CORDARONE200 MG/TAB PO (13:25)
[2023-03-20] MEDS ORDERED: LIPITOR 40MG TA40 MG PO (13:26)
[2023-03-20] MEDS ORDERED: COREG 3.123.125 MG/T PO (13:26)
[2023-03-20] MEDS ORDERED: ZYRTEC 10MG10 MG PO (13:26)
[2023-03-20] MEDS ORDERED: PEPCID 20MG TAB20 MG PO (13:27)
[2023-03-20] MEDS ORDERED: PLAVIX 75MG TAB75 MG PO (13:27)
[2023-03-20] MEDS ORDERED: MELATONIN3 M1 (13:27)
[2023-03-20] MEDS ORDERED: REMERON30 MG PO (13:29)
[2023-03-20] MEDS ORDERED: PROTONIX 40MG T40 MG PO (13:29)
[2023-03-20] MEDS ORDERED: SEROQUEL50 MG PO (13:29)
== END 2023-03-21 | disposition home or self-care (01) ==
LOC: EUO
DX: M86.671 Other chronic osteomyelitis, right ankle and foot (principal); L97.512 Non-pressure chronic ulcer of other part of right foot with fat layer exposed
CPT/HCPCS: J0875; J7060

== ENCOUNTER 2023-09-17 14:15 | Outpatient (RCR) | payer MEDICAID ==
[~2023-09-17 14:15] MED LIST changes: +CEFTIN500 MG PO; +CORDARONE200 MG/TAB PO; +COREG 3.123.125 MG/T PO; +LIPITOR 40MG TA40 MG PO; +MELATIN 3 MG-11 TAB PO; +MELATONIN3 M1; +PEPCID 20MG TAB20 MG PO; +PLAVIX 75MG TAB75 MG PO; +PROTONIX 40MG T40 MG PO; +REMERON30 MG PO; +SEROQUEL50 MG PO; +SINGULAIR 110 MG/TAB PO; +STIOLTO RESPIMAT4 GM IH; +ULTRAM 50MG TAB50 MG PO; +XANAX 0.5MG0.5 MG PO; +ZYRTEC 10MG10 MG PO
== END 2023-09-20 | disposition home or self-care (01) ==
LOC: MKS.ESL.PT
DX: G93.40 Encephalopathy, unspecified (principal)

== ENCOUNTER → 2023-10-15 | Outpatient (CLI) | payer MEDICARE, MEDICAID ==
[~2023-10-15] MED LIST changes: +CLEOCIN HCL300 MG PO
== END ==
LOC: COL.RAD 16:32
DX: M79.89 Other specified soft tissue disorders (principal); M85.80 Other specified disorders of bone density and structure, unspecified site; L60.0 Ingrowing nail

== ENCOUNTER 2023-11-14 11:14 | Emergency (ER) | payer MEDICARE, MEDICAID ==
[~2023-11-14] VITALS: Ht 160 cm; Wt 54.5 kg
[~2023-11-14 11:14] MED LIST changes: -CLEOCIN HCL300 MG PO
[2023-11-14 11:28] VITALS: BP 147/61; TEMP 97.6
[2023-11-14 13:13] LABS: BASO # 0.1 K/mm3 (0.0-0.2); BASO % 0.8 % (0.0-2.0); EOS # 0.5 K/mm3 (0.0-0.7); GRAN % 64.7 % (42.2-75.2); HEMATOCRIT 31.1 % (37.0-47.0); LYMPH # 1.5 K/mm3 (1.2-3.4); LYMPH % 19.1 % (20.0-51.0); MEAN CELL VOLUME 86 fl (80.0-100.0); MEAN CORPUSCULAR HEMOGLOBIN 28 pg (27-31); MEAN CORPUSCULAR HGB CONC 32 g/dl (33.0-37.0); MEAN PLATELET VOLUME 8.2 fl (7.4-10.4); MONO # 0.7 K/mm3 (0.1-0.6); MONO % 8.9 % (1.7-9.3); PLATELET COUNT 228 K/mm3 (130-400); RED BLOOD COUNT 3.63 M/mm3 (4.10-5.30); REDCELL DISTRIBUTION WIDTH-CV 14.3 % (11.5-14.5)
[2023-11-14] MEDS ORDERED: Clindamycin 150 MG CAP PO ONE (13:30)
[2023-11-14 13:45] LABS: ALBUMIN 3.4 g/dL (3.4-4.8); BILIRUBIN,TOTAL 0.3 mg/dL (0.2-1.2); C-REACTIVE PROTEIN 0.29 mg/dL (0.00-0.50); CALCIUM 9.3 mg/dL (8.4-10.2); CREATININE, serum 0.98 mg/dL (0.57-1.11); POTASSIUM 4.3 mEq/L (3.5-4.5); TOTAL PROTEIN 6.2 g/dl (6.2-8.1)
[2023-11-14] MEDS ORDERED: CLEOCIN HCL300 MG PO (14:46)
[2023-11-14 14:58] VITALS: PULSE 53
== END 2023-11-14 14:58 | disposition home or self-care (01) ==
LOC: COL.ER 11:14
PROVIDERS: Family Medicine
DX: L03.031 Cellulitis of right toe (principal); F17.210 Nicotine dependence, cigarettes, uncomplicated; Z88.1 Allergy status to other antibiotic agents